=== PATIENT | male | born 1960 | race Caucasian/White ===

== ENCOUNTER 2016-09-23 08:22 | Emergency (ER) | payer OTHER ==
[2016-09-23] MEDS ORDERED: ONDANSETRON 4 MG/2 ML VIAL IVP STA (08:56)
[2016-09-23] MEDS ORDERED: SODIUM CHLORIDE 0.9% 1,000 ML IV ONE (08:56)
--- NOTE | 2016-09-23 09:02 | ED Physician Documentation ---
History of Present Illness - Stated complaint Stated Complaint: ABD PX,NAUSEA - Chief complaint Chief Complaint: Abd Pain - Additonal information Additional information: hx from pt 55 male healthy prior hernia repair to ER with LLQ pain has had mild occ int LLQ pain for weeks to months but yesterday severe, int sharp, some flank pain, no scrotal pain no dysuria or hematuria sweats but no fever NV and unable to tacos PO no diarrhea his biggest concern is to see if he has pancreatitis because his of that pain has subsided right now Review of Systems Constitutional: reports: Sweats. denies: Fever Cardiac: denies: Chest pain / pressure Respiratory: denies: Dyspnea, Cough GI: reports: Abdominal Pain, Nausea, Vomiting. denies: Diarrhea : denies: Dysuria, Hematuria, Testicular pain Musculoskeletal: reports: Back pain Endocrine: denies: Easy bruising / bleeding Immunocompromised: denies: Immunocompromised PD PAST MEDICAL HISTORY - Past Medical History Past Medical History: No - Past Surgical History Past Surgical History: No - Present Medications Home Medications: Ambulatory Orders Medication Instructions Recorded Confirmed No Known Home Medications [No 09/23/16 09/23/16 Known Home Medications] - Allergies Allergies/Adverse Reactions: Allergies Allergy/AdvReac Type Severity Reaction Status Date / Time No Known Drug Allergies Allergy Verified 09/23/16 08:30 - Social History Does the pt smoke?: No Smoking Status: Never smoker Does the pt drink ETOH?: Yes Does the pt have substance abuse?: No PD ED PE NORMAL - Vitals Vital signs reviewed: Yes - General General: Alert and oriented X 3 - HEENT HEENT: PERRL - Neck Neck: Supple, no meningeal sign - Cardiac Cardiac: RRR - Respiratory Respiratory: No respiratory distress, Clear bilaterally - Abdomen Abdomen: Normal bowel sounds, Soft, Other (LLQ pain s rebound or guarding, no pulsatile mass) - Male Male : Other (no hernia, no swelling, no testicular TTP) Results - Vitals Vitals: Vital Signs - 24 hr 09/23/16 09/23/16 08:27 10:43 Temperature 36.6 C Heart Rate 82 78 Respiratory 16 16 Rate Blood Pressure 136/88 H 140/89 H O2 Saturation 99 100 Oxygen O2 Source Room air - Labs Labs: Laboratory Tests 09/23/16 09/23/16 09/23/16 08:45 09:05 09:05 WBC 12.4 H RBC 4.72 Hgb 15.9 Hct 47.2 MCV 100.0 H MCH 33.7 H MCHC 33.7 RDW 12.3 Plt Count 239 MPV 8.8 Neut # 9.7 H Lymph # 1.7 [place] # 0.9 Eos # 0.0 Baso # 0.1 Absolute Nucleated RBC 0.00 Nucleated RBCs 0.0 Sodium 138 Potassium 4.0 Chloride 100 L Carbon Dioxide 28 Anion Gap 10.0 BUN 11 Creatinine 0.7 Estimated GFR (MDRD) 116 Glucose 127 H Calcium 10.0 Total Bilirubin 1.5 H AST 34 ALT 28 Alkaline Phosphatase 47 Total Protein 7.7 Albumin 4.7 Globulin 3.0 Albumin/Globulin Ratio 1.6 Lipase 23 Urine Color YELLOW Urine Clarity CLEAR Urine pH 7.0 Ur Specific [place] 1.020 Urine Protein NEGATIVE Urine Glucose (UA) NEGATIVE Urine Ketones NEGATIVE Urine Occult Blood TRACE-LYSE Urine Nitrite NEGATIVE Urine Bilirubin NEGATIVE Urine Urobilinogen 0.2 (NORMAL) Ur Leukocyte Esterase NEGATIVE Ur Microscopic Review NOT INDICATED Urine Culture Comments NOT INDICATED - Rads (name of study) CT abd pelvis Radiology: See rad report (no acute, diverticulosis no itis) Departure - Departure Disposition: 01 Home, Self Care Clinical Impression: Renal colic on left side Condition: Good Instructions: ED Stone Renal W Colic Comments: It looks like you recently passed a kidney stone. There is a small amount of blood in your urine. But on the CT scan there is no stone left in the ureter. Also the CT scan does not show any other disease process to cause you pain. You do have some diverticulosis but no infection Specifically your labs and CT scan do not show any pancreas problems. Now that the stone is passed you should feel much better Please follow up with your PMD in about 2 weeks for a repeat urine test to be sure all the blood in the urine has resolved Also please follow up with your PMD about your blood pressure - it was high today
[2016-09-23] MEDS ORDERED: ONDANSETRON 4 MG/2 ML VIAL ONE (09:08)
[2016-09-23 09:13] LABS: BILIRUBIN,URINE NEGATIVE (NEGATIVE)
[2016-09-23 09:15] LABS: UA CHARGE (STRIP ONLY) YES; UR CULTURE IF IND NOT INDICATED
[2016-09-23 09:21] LABS: BASOPHILS # (AUTO) 0.1 10^3/uL (0.0-0.1); BASOPHILS % (AUTO) 0.5 %; EOSINOPHILS % (AUTO) 0.3 %; HCT - HEMATOCRIT 47.2 % (42.0-52.0); HGB - HEMOGLOBIN 15.9 g/dL (14.0-18.0); LYMPHOCYTES # (AUTO) 1.7 10^3/uL (1.5-3.5); LYMPHOCYTES % (AUTO) 13.4 %; MEAN CORPUSCULAR HEMOGLOBIN 33.7 pg (27.0-31.0); MEAN CORPUSCULAR HGB CONC 33.7 g/dL (32.0-36.0); MEAN PLATELET VOLUME 8.8 fL (7.4-11.4); MONOCYTES # (AUTO) 0.9 10^3/uL (0.0-1.0); MONOCYTES % (AUTO) 7.7 %; NEUTROPHILS # (AUTO) 9.7 10^3/uL (1.5-6.6); NEUTROPHILS % (AUTO) 78.1 %; RED BLOOD COUNT 4.72 10^6/uL (4.70-6.10); RED CELL DISTRIBUTION WIDTH 12.3 % (12.0-15.0); UNCORRECTED WHITE BLOOD COUNT 12.4 x10^3/uL; WHITE BLOOD COUNT 12.4 x10^3/uL (4.8-10.8)
[2016-09-23 09:35] LABS: ALBUMIN/GLOBULIN RATIO 1.6 (1.0-2.2); BILIRUBIN,TOTAL 1.5 mg/dL (0.2-1.0); CREATININE 0.7 mg/dL (0.6-1.2); TOTAL PROTEIN 7.7 g/dL (6.7-8.2)
--- NOTE | 2016-09-23 09:47 | CT Preliminary Report ---
Exam: CT Abdomen/Pelvis W/O IMPRESSION: 1. Negative for urinary tract stone or hydronephrosis. 2. Minimal diverticulosis. No diverticulitis at this time. [facility] SITE ID: [id number]
--- NOTE | 2016-09-23 09:49 | CT Report ---
EXAM: CT ABDOMEN AND PELVIS (CT KUB) EXAM DATE: 09/23/2016 09:19 AM. CLINICAL HISTORY: L flank to LLQ pain. COMPARISONS: None. TECHNIQUE: Routine axial helical CT imaging was performed through the abdomen and pelvis without IV c ontrast. Reconstructions: Coronal and sagittal. In accordance with CT protocol optimization, one or more of the following dose reduction techniques w ere utilized for this exam: automated exposure control, adjustment of mA and/or KV based on patient s ize, or use of iterative reconstructive technique. FINDINGS: Lung Bases: Unremarkable. Right Kidney/Ureter: No stones, hydronephrosis, or hydroureter. No perinephric fat stranding. Left Kidney/Ureter: Rotated anteriorly, normal variant. Probable cyst. No stone or hydronephrosis. Other Solid Organs: Noncontrast images of the solid organs are grossly unremarkable. Gallbladder/Bile Ducts: Unremarkable. Peritoneal Cavity: No free fluid, free air or [place] adenopathy. Bowel is grossly unremarkable. Normal appendix. Minimal colonic diverticulosis. Pelvic Organs: No bladder stones or wall thickening. Noncontrast images of the visualized pelvic orga ns are unremarkable. Vasculature: Unremarkable. Other: None. IMPRESSION: 1. Negative for urinary tract stone or hydronephrosis. 2. Minimal diverticulosis. No diverticulitis at this time. [facility] Referring Provider Line: [phone] SITE ID: [id number]
[2016-09-23 10:44] VITALS: BP 140/89
== END 2016-09-23 11:14 | disposition home or self-care (01) ==
LOC: ED 08:22
DX: N23 Unspecified renal colic (principal); R31.9 Hematuria, unspecified; K57.30 Diverticulosis of large intestine without perforation or abscess without bleeding; R03.0 Elevated blood-pressure reading, without diagnosis of hypertension
CPT/HCPCS: 36415; 74176; 80053; 81001; 81003; 83690; 85025; 87086; 96361; 96374; 99283; 99284